=== PATIENT | male | born 1985 | race Caucasian/White ===

== ENCOUNTER 2017-08-22 19:19 | Emergency (ER) | payer MEDICAID, OTHER ==
[~2017-08-22] VITALS: Ht 182.9 cm; Wt 79.4 kg
[~2017-08-22 19:19] MED LIST: GUAI-647 PO
[2017-08-22 19:20] VITALS: BP_SYST 127
[2017-08-22] MEDS ORDERED: KETOROLAC TROMETHAMINE 15 MG VIAL IM ONE (19:30)
[2017-08-22 20:25] VITALS: BP_SYST 122
== END 2017-08-22 20:25 | disposition home or self-care (01) ==
LOC: SED 19:19
DX: S49.92XA Unspecified injury of left shoulder and upper arm, initial encounter (principal); R03.0 Elevated blood-pressure reading, without diagnosis of hypertension; J45.909 Unspecified asthma, uncomplicated; F17.210 Nicotine dependence, cigarettes, uncomplicated; X50.0XXA Overexertion from strenuous movement or load, initial encounter; Y93.89 Activity, other specified; Y92.89 Other specified places as the place of occurrence of the external cause; Y99.8 Other external cause status
CPT/HCPCS: 29105; 73030; 96372; 99284; J1885

== ENCOUNTER 2018-05-16 15:49 | Emergency (ER) | payer BC, OTHER ==
[~2018-05-16] VITALS: Ht 182.9 cm; Wt 83.9 kg
[2018-05-16 15:58] VITALS: BP_SYST 139
[2018-05-16 16:54] LABS: INR 0.9 (0.80-1.20); PROTHROMBIN TIME 9.2 SECS (9.5-12.5)
[2018-05-16 17:03] LABS: POTASSIUM 4.1 mmol/L (3.5-5.1)
[2018-05-16 17:04] LABS: CALCIUM 9.2 mg/dL (8.4-11.0); CREATININE 1.16 mg/dL (0.55-1.30); TOTAL BILIRUBIN 0.2 mg/dL (0.0-1.0)
[2018-05-16 17:05] LABS: ALBUMIN 3.8 g/dL (3.4-4.8); C-REACTIVE PROTEIN QUANT 2.6 mg/dL (0-0.5); URIC ACID 6.4 mg/dL (2.4-7.0)
[2018-05-16 17:15] LABS: HEMOGLOBIN 14.9 g/dL (14.0-18.0); RED BLOOD CELL COUNT(AUTO) 5.09 MIL/uL (4.2-6.2); WHITE BLOOD COUNT (AUTO) 7.4 K/uL (4.8-10.8)
[2018-05-16 17:16] LABS: BASOPHILS % (AUTO) 0.3 % (0.0-2.0); EOSINOPHILS # (AUTO) 0.2 K/uL (0.0-0.4); EOSINOPHILS % (AUTO) 2.4 % (0.0-4.0); HEMATOCRIT 44.1 % (36-54); LYMPHOCYTES # (AUTO) 1.9 K/uL (1.0-5.5); LYMPHOCYTES % (AUTO) 25.4 % (20.5-51.5); MEAN CORPUSCULAR HEMOGLOBIN 29 pg (27-31); MEAN CORPUSCULAR HGB CONC 34 % (32-36); MEAN CORPUSCULAR VOLUME 87 fL (79.0-98.0); MONOCYTES # (AUTO) 0.8 K/uL (0.0-1.0); MONOCYTES % (AUTO) 10.4 % (1.7-9.3); NEUTROPHILS # (AUTO) 4.6 K/uL (1.8-7.7); NEUTROPHILS % (AUTO) 61.5 % (40.0-70.0); PLATELET COUNT (AUTO) 305 K/uL (130-430); RED CELL DISTRIBUTION WIDTH 13.1 % (9.0-15.0)
[2018-05-16 17:57] VITALS: BP_SYST 99
== END 2018-05-16 17:57 | disposition home or self-care (01) ==
LOC: SED 15:49
DX: M25.571 Pain in right ankle and joints of right foot (principal); J45.909 Unspecified asthma, uncomplicated; F17.200 Nicotine dependence, unspecified, uncomplicated; R03.0 Elevated blood-pressure reading, without diagnosis of hypertension
CPT/HCPCS: 36415; 80053; 84550-TC; 85025; 85610-TC; 85730-TC; 86140; 99284

== ENCOUNTER 2022-04-08 11:01 | Emergency (ER) | payer BC ==
[~2022-04-08] VITALS: Ht 182.9 cm; Wt 81.6 kg
[2022-04-08 11:28] VITALS: BP_SYST 144
[2022-04-08] MEDS ORDERED: CLIN-142 PO (13:14)
[2022-04-08] MEDS ORDERED: IBUP-1969 PO (13:14)
[2022-04-08 13:36] VITALS: BP_SYST 141
== END 2022-04-08 13:36 | disposition home or self-care (01) ==
LOC: SED 11:01
DX: L03.211 Cellulitis of face (principal); K08.89 Other specified disorders of teeth and supporting structures; R22.0 Localized swelling, mass and lump, head; J45.909 Unspecified asthma, uncomplicated; Z79.899 Other long term (current) drug therapy
CPT/HCPCS: 99283